=== PATIENT | male | born 2000 | race Caucasian/White ===

== ENCOUNTER 2021-03-11 12:49 | Emergency (ER) | payer MEDICAID, OTHER ==
[~2021-03-11] VITALS: Ht 177.8 cm; Wt 81.0 kg
[2021-03-11] MEDS ORDERED: KETOROLAC 60MG/2ML VIAL IM ONE (13:15)
[2021-03-11] MEDS ORDERED: BACITRACIN ZINC OINT UDPKT TOP ONE ×2 (13:15→13:30)
[2021-03-11 13:23] VITALS: BP 136/88
[2021-03-11] MEDS ORDERED: TETANUS, DIPHTHERIA, PERTUSSIS VAC/PF 0.5ML (>10YR OLD) IM ONE (13:30)
[2021-03-11] MEDS ORDERED: LIDOCAINE HCL/PF 1% 10 MG/ML 5ML VIAL INFIL ONE (13:30)
[2021-03-11] MEDS ORDERED: BO1 TP (14:40)
[2021-03-11] MEDS ORDERED: IBUP-2029 MT (14:40)
== END 2021-03-11 15:00 ==
LOC: ER 13:06
DX: S20.419A Abrasion of unspecified back wall of thorax, initial encounter (principal); S41.041A Puncture wound with foreign body of right shoulder, initial encounter; S40.211A Abrasion of right shoulder, initial encounter; S70.211A Abrasion, right hip, initial encounter; Y35.833A Legal intervention involving a conducted energy device, suspect injured, initial encounter; Y35.093A Legal intervention involving other firearm discharge, suspect injured, initial encounter; Y93.89 Activity, other specified; Y92.89 Other specified places as the place of occurrence of the external cause
CPT/HCPCS: 12002; 74176; 90471; 90715; 99284; J1885; J3490; Z7610